=== PATIENT | male | born 1935 | race Hispanic/Latino ===

== ENCOUNTER 2022-01-08 10:48 | Inpatient (IN) | payer MEDICAID, MEDICARE ==
[~2022-01-08] VITALS: Ht 162.6 cm; Wt 61.9 kg
[2022-01-08] MEDS ORDERED: Morphine 2mg Syringe 2 MG/ML SYR IV ONE (11:02)
[2022-01-08] MEDS ORDERED: ONDANSETRON HCL INJ 2MG/ML 2ML 2 MG/ML VIAL IV ONE ×2 (11:02→11:19)
[2022-01-08] MEDS ORDERED: SODIUM CHLORIDE 0.9% 1000ML 1,000 ML IV STA (11:02)
[2022-01-08 11:32] LABS: BASOPHILS % 0.4 % (0.0-1.0); EOSINOPHILS % 0.2 % (0.0-6.0); HEMATOCRIT 39.1 % (38.2-49.6); HEMOGLOBIN 12.4 g/dL (14.0-18.0); LYMPHOCYTES # (AUTO) 1.6 (1.0-3.2); LYMPHOCYTES % 18.6 % (18.0-39.1); MEAN CORPUSCULAR HEMOGLOBIN 25.9 pg (28-32); MEAN CORPUSCULAR HGB CONC 31.7 g/dL (31-35); MEAN CORPUSCULAR VOLUME 81.8 fL (81-99); MONOCYTES # (AUTO) 0.6 (0.2-0.8); MONOCYTES % 6.9 % (4.4-11.3); NEUTROPHILS # (AUTO) 6.3 (2.1-6.9); NEUTROPHILS % 73.7 % (38.7-80.0); PLATELET COUNT 350 x10e3/uL (140-360); RED BLOOD COUNT 4.78 x10e6/uL (4.3-5.7); RED CELL DISTRIBUTION WIDTH 19.3 % (11.7-14.4)
[2022-01-08 11:39] LABS: INR 0.87; PROTHROMBIN TIME 12.6 seconds (11.9-14.5)
[2022-01-08 11:40] LABS: PARTIAL THROMBOPLASTIN TIME 31.4 seconds (23.8-35.5)
[2022-01-08] MEDS ORDERED: SODIUM CHLORIDE 0.9% 1000ML 1,000 ML IV ONE ×2 (12:00→12:15)
[2022-01-08] MEDS ORDERED: PIPERACILLIN/TAZOBACTAM 3.375 GM in SODIUM CHLORIDE 0.9% 50ML 50 ML IV ONE (12:00)
[2022-01-08 12:04] LABS: ALBUMIN 3.8 g/dL (3.5-5.0); ALBUMIN/GLOBULIN RATIO 0.8 (0.8-2.0); ANION GAP 17.1 mmol/L (8-16); CALCIUM 9.8 mg/dL (8.4-10.2); CREATININE, SERUM 1.37 mg/dL (0.72-1.25); MAGNESIUM 2.3 MG/DL (1.3-2.1); POTASSIUM 4.1 mmol/L (3.5-5.1)
[2022-01-08 12:11] LABS: CREATINE KINASE MB 2.3 ng/mL (0-5.0)
[2022-01-08] MEDS ORDERED: SODIUM CHLORIDE 0.9% 1000ML 1,000 ML ONE (12:16)
[2022-01-08] MEDS ORDERED: IOPAMIDOL 370 MG/ML 200 ML INFUS..BTL INJ ONE (12:28)
[2022-01-08] MEDS ORDERED: SODIUM CHLORIDE 0.9% 50ML 50 ML ONE (12:28)
[2022-01-08] MEDS ORDERED: BENZOCAINE/TETRACAINE/BUTAMBEN AERO SPRAY 56 GM CAN TOP ONE (13:15)
[2022-01-08 13:27] LABS: CLARITY,URINE SL CLOUDY (CLEAR); COLOR,URINE YELLOW (YELLOW); KETONES,URINE NEGATIVE (NEGATIVE); LEUKOCYTE ESTERASE ,URINE NEGATIVE (NEGATIVE); NITRITE,URINE NEGATIVE (NEGATIVE); PROTEIN,URINE DIPSTICK TRACE (NEGATIVE); URINE UROBILINOGEN 0.2 mg/dL (0.2 - 1)
[2022-01-08 13:29] LABS: AMPHETAMINES SCREEN,URINE NEGATIVE (NEGATIVE); BENZODIAZEPINES SCREEN,URINE NEGATIVE (NEGATIVE); PHENCYCLIDINE SCREEN,URINE NEGATIVE (NEGATIVE)
[2022-01-08 13:37] LABS: AMORPHOUS SEDIMENT,URINE FEW (FEW); BACTERIA,URINE MODERATE /HPF; MUCUS,URINE FEW (RARE)
[2022-01-08] MEDS: SODIUM CHLORIDE 0.9% 1000ML 1,000 ML IV SCH ×2 (14:41→23:25)
[2022-01-08] MEDS ORDERED: PIPERACILLIN/TAZOBACTAM 3.375 GM in SODIUM CHLORIDE 0.9% 50ML 50 ML IV SCH (15:00)
[2022-01-08] MEDS: PIPERACILLIN/TAZOBACTAM 3.375 GM in SODIUM CHLORIDE 0.9% 50ML 50 ML IV SCH (18:21)
[2022-01-08 20:00] VITALS: BP 167/79
[2022-01-08] MEDS: ONDANSETRON HCL INJ 2MG/ML 2ML 2 MG/ML VIAL IV PRN ×2 (20:06→23:26)
[2022-01-08] MEDS: Morphine 2mg Syringe 2 MG/ML SYR IV PRN ×2 (20:06→23:26)
[2022-01-09] VITALS: BP 159/81
[2022-01-09] MEDS: SODIUM CHLORIDE 0.9% 1000ML 1,000 ML IV SCH ×4 (03:35→23:03)
[2022-01-09] MEDS: Morphine 2mg Syringe 2 MG/ML SYR IV PRN ×3 (03:52→22:27)
[2022-01-09] MEDS: ONDANSETRON HCL INJ 2MG/ML 2ML 2 MG/ML VIAL IV PRN ×3 (03:52→21:14)
[2022-01-09 04:10] VITALS: BP 165/90
[2022-01-09] MEDS: HYDRALAZINE HCL 20 MG/ML VIAL IV PRN (04:15)
[2022-01-09 05:20] LABS: BASOPHILS % 0.5 % (0.0-1.0); EOSINOPHILS # (AUTO) 0.1 (0.0-0.4); EOSINOPHILS % 2.3 % (0.0-6.0); HEMATOCRIT 33.5 % (38.2-49.6); LYMPHOCYTES # (AUTO) 1.5 (1.0-3.2); LYMPHOCYTES % 26.9 % (18.0-39.1); MEAN CORPUSCULAR HEMOGLOBIN 26.3 pg (28-32); MEAN CORPUSCULAR HGB CONC 32.8 g/dL (31-35); MEAN CORPUSCULAR VOLUME 80.1 fL (81-99); MONOCYTES # (AUTO) 0.9 (0.2-0.8); MONOCYTES % 16.5 % (4.4-11.3); NEUTROPHILS % 53.6 % (38.7-80.0); PLATELET COUNT 293 x10e3/uL (140-360); RED BLOOD COUNT 4.18 x10e6/uL (4.3-5.7); RED CELL DISTRIBUTION WIDTH 19.7 % (11.7-14.4)
[2022-01-09] MEDS: HEPARIN SOD (PORCINE) 5,000 UNIT/ML VIAL SC SCH ×3 (05:40→21:07)
[2022-01-09] MEDS: PIPERACILLIN/TAZOBACTAM 3.375 GM in SODIUM CHLORIDE 0.9% 50ML 50 ML IV SCH ×6 (05:40→23:22)
[2022-01-09 05:49] LABS: ALBUMIN 2.9 g/dL (3.5-5.0); ALBUMIN/GLOBULIN RATIO 0.8 (0.8-2.0); CALCIUM 8.2 mg/dL (8.4-10.2); CREATININE, SERUM 1.03 mg/dL (0.72-1.25)
[2022-01-09 06:12] LABS: FERRITIN 73.45 ng/mL (21.81-274.66); THYROID STIMULATING HORMONE 1.718 uIU/mL (0.350-4.940)
[2022-01-09 08:00] VITALS: BP 139/57
[2022-01-09] MEDS: DOCUSATE SODIUM 100 MG CAP PO SCH (09:00)
[2022-01-09] MEDS: SENNOSIDES 8.6 MG TAB PO SCH (09:00)
[2022-01-09 15:56] VITALS: BP 158/82
[2022-01-09] MEDS ORDERED: BISACODYL 10 MG SUPP PR ONE (18:50)
[2022-01-09 20:00] VITALS: BP 160/81
[2022-01-09 21:00] VITALS: BP 160/81
[2022-01-10] VITALS (9 sets, daily range): BP systolic 148–173; BP diastolic 76–91
[2022-01-10] MEDS: HYDRALAZINE HCL 20 MG/ML VIAL IV PRN ×2 (00:41→21:59)
[2022-01-10] MEDS: ONDANSETRON HCL INJ 2MG/ML 2ML 2 MG/ML VIAL IV PRN ×3 (01:18→22:52)
[2022-01-10] MEDS: Morphine 2mg Syringe 2 MG/ML SYR IV PRN ×5 (01:56→22:52)
[2022-01-10 05:00] LABS: BASOPHILS % 0.5 % (0.0-1.0); EOSINOPHILS % 0.2 % (0.0-6.0); HEMATOCRIT 30.7 % (38.2-49.6); LYMPHOCYTES % 17.7 % (18.0-39.1); MEAN CORPUSCULAR HEMOGLOBIN 26.5 pg (28-32); MEAN CORPUSCULAR HGB CONC 32.6 g/dL (31-35); MEAN CORPUSCULAR VOLUME 81.2 fL (81-99); MONOCYTES # (AUTO) 0.7 (0.2-0.8); MONOCYTES % 12.1 % (4.4-11.3); NEUTROPHILS # (AUTO) 3.9 (2.1-6.9); NEUTROPHILS % 69.1 % (38.7-80.0); PLATELET COUNT 241 x10e3/uL (140-360); RED BLOOD COUNT 3.78 x10e6/uL (4.3-5.7); RED CELL DISTRIBUTION WIDTH 19.9 % (11.7-14.4)
[2022-01-10] MEDS: PIPERACILLIN/TAZOBACTAM 3.375 GM in SODIUM CHLORIDE 0.9% 50ML 50 ML IV SCH ×4 (05:07→23:26)
[2022-01-10] MEDS: SODIUM CHLORIDE 0.9% 1000ML 1,000 ML IV SCH ×3 (05:08→18:30)
[2022-01-10] MEDS: HEPARIN SOD (PORCINE) 5,000 UNIT/ML VIAL SC SCH ×3 (05:08→21:59)
[2022-01-10 05:21] LABS: ANION GAP 11.7 mmol/L (8-16); CALCIUM 8.2 mg/dL (8.4-10.2); CREATININE, SERUM 0.97 mg/dL (0.72-1.25); POTASSIUM 3.7 mmol/L (3.5-5.1)
[2022-01-10] MEDS ORDERED: BISACODYL 10 MG SUPP PR SCH (08:00)
[2022-01-10] MEDS: DOCUSATE SODIUM 100 MG CAP PO SCH (08:26)
[2022-01-10] MEDS: ASPIRIN 81 MG ENTERIC COATED PO SCH (08:26)
[2022-01-10] MEDS: THIAMINE HCL 100 MG TAB PO SCH (08:27)
[2022-01-10] MEDS: SENNOSIDES 8.6 MG TAB PO SCH (08:27)
[2022-01-10] MEDS: AMLODIPINE BESYLATE 10 MG TAB PO SCH (08:27)
[2022-01-10] MEDS ORDERED: FERROUS SULFATE 325 MG TAB PO SCH (09:00)
[2022-01-10] MEDS: BISACODYL 10 MG SUPP PR SCH (21:58)
[2022-01-11] VITALS (9 sets, daily range): BP systolic 144–166; BP diastolic 71–81
[2022-01-11] MEDS: Morphine 2mg Syringe 2 MG/ML SYR IV PRN ×4 (03:38→21:06)
[2022-01-11] MEDS: ONDANSETRON HCL INJ 2MG/ML 2ML 2 MG/ML VIAL IV PRN ×4 (03:38→21:06)
[2022-01-11] MEDS: SODIUM CHLORIDE 0.9% 1000ML 1,000 ML IV SCH ×4 (03:38→21:09)
[2022-01-11] MEDS: PIPERACILLIN/TAZOBACTAM 3.375 GM in SODIUM CHLORIDE 0.9% 50ML 50 ML IV SCH ×3 (05:25→17:15)
[2022-01-11 05:28] LABS: BASOPHILS % 0.7 % (0.0-1.0); EOSINOPHILS # (AUTO) 0.1 (0.0-0.4); HEMATOCRIT 30.6 % (38.2-49.6); HEMOGLOBIN 9.8 g/dL (14.0-18.0); LYMPHOCYTES # (AUTO) 1.5 (1.0-3.2); LYMPHOCYTES % 25.3 % (18.0-39.1); MEAN CORPUSCULAR HEMOGLOBIN 26.4 pg (28-32); MEAN CORPUSCULAR VOLUME 82.5 fL (81-99); MONOCYTES # (AUTO) 1.2 (0.2-0.8); MONOCYTES % 19.5 % (4.4-11.3); NEUTROPHILS # (AUTO) 3.2 (2.1-6.9); NEUTROPHILS % 52.3 % (38.7-80.0); PLATELET COUNT 241 x10e3/uL (140-360); RED BLOOD COUNT 3.71 x10e6/uL (4.3-5.7); RED CELL DISTRIBUTION WIDTH 20.2 % (11.7-14.4)
[2022-01-11] MEDS: HEPARIN SOD (PORCINE) 5,000 UNIT/ML VIAL SC SCH ×3 (05:33→21:09)
[2022-01-11 05:46] LABS: ANION GAP 13.4 mmol/L (8-16); CREATININE, SERUM 0.95 mg/dL (0.72-1.25); POTASSIUM 3.4 mmol/L (3.5-5.1)
[2022-01-11] MEDS: BISACODYL 10 MG SUPP PR SCH ×2 (08:09→21:09)
[2022-01-11] MEDS: ASPIRIN 81 MG ENTERIC COATED PO SCH (08:34)
[2022-01-11] MEDS: DOCUSATE SODIUM 100 MG CAP PO SCH (08:34)
[2022-01-11] MEDS: AMLODIPINE BESYLATE 10 MG TAB PO SCH (08:34)
[2022-01-11] MEDS: SENNOSIDES 8.6 MG TAB PO SCH (08:34)
[2022-01-11] MEDS: THIAMINE HCL 100 MG TAB PO SCH (08:35)
[2022-01-11] MEDS: HYDRALAZINE HCL 20 MG/ML VIAL IV PRN ×2 (09:02→21:23)
[2022-01-11] MEDS ORDERED: POTASSIUM CHLORIDE 20MEQ/100ML 100 ML IV ONE (18:15)
[2022-01-11] MEDS ORDERED: POTASSIUM CHLORIDE 20 MEQ TAB CR PO ONE (18:30)
[2022-01-12] VITALS (14 sets, daily range): BP systolic 114–188; BP diastolic 58–95
[2022-01-12] MEDS: Morphine 2mg Syringe 2 MG/ML SYR IV PRN ×3 (01:14→23:20)
[2022-01-12] MEDS: ONDANSETRON HCL INJ 2MG/ML 2ML 2 MG/ML VIAL IV PRN ×2 (01:14→05:36)
[2022-01-12] MEDS: PIPERACILLIN/TAZOBACTAM 3.375 GM in SODIUM CHLORIDE 0.9% 50ML 50 ML IV SCH ×5 (01:19→23:34)
[2022-01-12] MEDS: SODIUM CHLORIDE 0.9% 1000ML 1,000 ML IV SCH ×3 (04:35→19:42)
[2022-01-12] MEDS: HEPARIN SOD (PORCINE) 5,000 UNIT/ML VIAL SC SCH (05:36)
[2022-01-12] MEDS: HYDRALAZINE HCL 20 MG/ML VIAL IV PRN (05:44)
[2022-01-12 06:52] LABS: ANION GAP 17.3 mmol/L (8-16); CALCIUM 8.2 mg/dL (8.4-10.2); CREATININE, SERUM 0.89 mg/dL (0.72-1.25); MAGNESIUM 1.8 MG/DL (1.3-2.1); POTASSIUM 3.3 mmol/L (3.5-5.1)
[2022-01-12] MEDS: BISACODYL 10 MG SUPP PR SCH (08:23)
[2022-01-12] MEDS: SENNOSIDES 8.6 MG TAB PO SCH (08:24)
[2022-01-12] MEDS: DOCUSATE SODIUM 100 MG CAP PO SCH (08:24)
[2022-01-12] MEDS: ASPIRIN 81 MG ENTERIC COATED PO SCH (08:24)
[2022-01-12] MEDS: THIAMINE HCL 100 MG TAB PO SCH (08:24)
[2022-01-12] MEDS: AMLODIPINE BESYLATE 10 MG TAB PO SCH (08:24)
[2022-01-12] MEDS ORDERED: POTASSIUM CHLORIDE 20MEQ/100ML 200 ML IV ONE (09:00)
[2022-01-12] MEDS: LABETALOL HCL 5 MG/ML 20ML VIAL IV PRN (10:46)
[2022-01-12] MEDS ORDERED: ROCURONIUM BROMIDE 10 MG/ML 5ML VIAL IV ONE (12:15)
[2022-01-12] MEDS ORDERED: PROPOFOL IV EMULSION 10 MG/ML 20 ML VIAL ONE (12:15)
[2022-01-12] MEDS ORDERED: POVIDONE IODINE 0.05% 0.05 % ML PO ONE (12:15)
[2022-01-12] MEDS ORDERED: KETOROLAC TROMETHAMINE 30 MG/ML VIAL ONE (12:15)
[2022-01-12] MEDS ORDERED: LIDOCAINE HCL 2% LOCAL INJ 5 ML SDV VIAL INJ ONE (12:15)
[2022-01-12] MEDS ORDERED: SUCCINYLCHOLINE CHLORIDE 20 MG/ML 10ML VIAL ONE (12:15)
[2022-01-12] MEDS ORDERED: SEVOFLURANE INHAL SOLN 250 ML PEN BTL ONE (12:15)
[2022-01-12] MEDS: IRON SUCROSE 100 MG in SODIUM CHLORIDE 0.9% 100 ML 100 ML IV SCH ×2 (12:56→20:37)
[2022-01-12] MEDS ORDERED: MIDAZOLAM HCL 2 MG/2 ML VIAL ONE (13:15)
[2022-01-12] MEDS ORDERED: FENTANYL CITRATE/PF 100MCG/2 ML INJ ONE ×2 (13:15→15:26)
[2022-01-12] MEDS ORDERED: SUGAMMADEX SODIUM 200 MG/2 ML VIAL IV ONE (13:54)
[2022-01-12] MEDS ORDERED: ACETAMINOPHEN 1000 MG/100 ML 100 ML IV ONE (13:54)
[2022-01-12] MEDS ORDERED: ACETAMINOPHEN 1000 MG/100 ML IV PRN (15:00)
[2022-01-12] MEDS: SODIUM CHLORIDE 0.9% 250ML IRRIG IR SCH ×3 (17:32→23:20)
[2022-01-12 20:17] LABS: ANION GAP 14.4 mmol/L (8-16); CREATININE, SERUM 0.82 mg/dL (0.72-1.25); POTASSIUM 3.4 mmol/L (3.5-5.1)
[2022-01-12] MEDS ORDERED: POTASSIUM CHLORIDE 20MEQ/100ML 100 ML IV ONE (20:50)
[2022-01-13] VITALS (22 sets, daily range): BP systolic 122–169; BP diastolic 67–108
[2022-01-13] MEDS: SODIUM CHLORIDE 0.9% 1000ML 1,000 ML IV SCH ×4 (00:44→22:42)
[2022-01-13] MEDS: SODIUM CHLORIDE 0.9% 250ML IRRIG IR SCH ×6 (03:01→23:16)
[2022-01-13] MEDS: Morphine 2mg Syringe 2 MG/ML SYR IV PRN ×3 (03:24→19:35)
[2022-01-13] MEDS: PIPERACILLIN/TAZOBACTAM 3.375 GM in SODIUM CHLORIDE 0.9% 50ML 50 ML IV SCH ×4 (05:00→23:58)
[2022-01-13 05:03] LABS: BASOPHILS % 0.2 % (0.0-1.0); HEMOGLOBIN 10.3 g/dL (14.0-18.0); LYMPHOCYTES # (AUTO) 0.8 (1.0-3.2); LYMPHOCYTES % 6.3 % (18.0-39.1); MEAN CORPUSCULAR HEMOGLOBIN 26.8 pg (28-32); MEAN CORPUSCULAR HGB CONC 33.2 g/dL (31-35); MEAN CORPUSCULAR VOLUME 80.7 fL (81-99); MONOCYTES # (AUTO) 0.8 (0.2-0.8); MONOCYTES % 6.9 % (4.4-11.3); NEUTROPHILS # (AUTO) 10.5 (2.1-6.9); NEUTROPHILS % 86.2 % (38.7-80.0); PLATELET COUNT 205 x10e3/uL (140-360); RED BLOOD COUNT 3.84 x10e6/uL (4.3-5.7); RED CELL DISTRIBUTION WIDTH 20.5 % (11.7-14.4)
[2022-01-13 05:37] LABS: ANION GAP 11.5 mmol/L (8-16); CALCIUM 7.9 mg/dL (8.4-10.2); CREATININE, SERUM 0.83 mg/dL (0.72-1.25); MAGNESIUM 1.7 MG/DL (1.3-2.1); POTASSIUM 3.5 mmol/L (3.5-5.1)
[2022-01-13] MEDS: AMLODIPINE BESYLATE 10 MG TAB PO SCH (07:40)
[2022-01-13] MEDS: ONDANSETRON HCL INJ 2MG/ML 2ML 2 MG/ML VIAL IV PRN ×2 (08:13→19:29)
[2022-01-13] MEDS ORDERED: MAGNESIUM SULFATE 2GM/50ML 50 ML IV ONE (09:00)
[2022-01-13] MEDS: IRON SUCROSE 100 MG in SODIUM CHLORIDE 0.9% 100 ML 100 ML IV SCH (10:57)
[2022-01-13] MEDS: LABETALOL HCL 5 MG/ML 20ML VIAL IV PRN (14:26)
[2022-01-13] MEDS: HYDROMORPHONE 1MG/1ML INJ IV PRN (21:31)
[2022-01-14] VITALS (10 sets, daily range): BP systolic 130–171; BP diastolic 75–91
[2022-01-14] MEDS: ONDANSETRON HCL INJ 2MG/ML 2ML 2 MG/ML VIAL IV PRN ×3 (01:41→17:28)
[2022-01-14] MEDS: HYDROMORPHONE 1MG/1ML INJ IV PRN ×4 (01:45→21:19)
[2022-01-14] MEDS: SODIUM CHLORIDE 0.9% 250ML IRRIG IR SCH ×7 (03:28→21:31)
[2022-01-14] MEDS: SODIUM CHLORIDE 0.9% 1000ML 1,000 ML IV SCH ×4 (04:46→21:22)
[2022-01-14] MEDS: PIPERACILLIN/TAZOBACTAM 3.375 GM in SODIUM CHLORIDE 0.9% 50ML 50 ML IV SCH ×3 (05:50→17:28)
[2022-01-14 06:02] LABS: BASOPHILS % 0.2 % (0.0-1.0); EOSINOPHILS # (AUTO) 0.5 (0.0-0.4); HEMATOCRIT 27.6 % (38.2-49.6); HEMOGLOBIN 8.9 g/dL (14.0-18.0); LYMPHOCYTES # (AUTO) 1.6 (1.0-3.2); LYMPHOCYTES % 12.8 % (18.0-39.1); MEAN CORPUSCULAR HEMOGLOBIN 26.7 pg (28-32); MEAN CORPUSCULAR HGB CONC 32.2 g/dL (31-35); MEAN CORPUSCULAR VOLUME 82.9 fL (81-99); MONOCYTES # (AUTO) 0.9 (0.2-0.8); MONOCYTES % 7.5 % (4.4-11.3); NEUTROPHILS # (AUTO) 9.2 (2.1-6.9); NEUTROPHILS % 74.9 % (38.7-80.0); PLATELET COUNT 181 x10e3/uL (140-360); RED BLOOD COUNT 3.33 x10e6/uL (4.3-5.7); RED CELL DISTRIBUTION WIDTH 20.9 % (11.7-14.4)
[2022-01-14 06:26] LABS: ALBUMIN/GLOBULIN RATIO 0.7 (0.8-2.0); ANION GAP 9.9 mmol/L (8-16); CALCIUM 7.7 mg/dL (8.4-10.2); CREATININE, SERUM 0.73 mg/dL (0.72-1.25)
[2022-01-14 06:29] LABS: POTASSIUM 2.9 mmol/L (3.5-5.1)
[2022-01-14] MEDS: POTASSIUM CHLORIDE 10MEQ/100ML 100 ML IV SCH ×2 (08:08→10:29)
[2022-01-14] MEDS ORDERED: POTASSIUM CHLORIDE 20MEQ/100ML 100 ML IV ONE (09:00)
[2022-01-14] MEDS: AMLODIPINE BESYLATE 10 MG TAB PO SCH (09:00)
[2022-01-14] MEDS: IRON SUCROSE 100 MG in SODIUM CHLORIDE 0.9% 100 ML 100 ML IV SCH (10:00)
[2022-01-14] MEDS ORDERED: POTASSIUM CHLORIDE 20MEQ/100ML 100 ML ONE ×2 (10:36→14:14)
[2022-01-14] MEDS ORDERED: BISACODYL 10 MG SUPP PR ONE (12:30)
[2022-01-14] MEDS: LABETALOL HCL 5 MG/ML 20ML VIAL IV PRN (21:20)
[2022-01-15] VITALS (8 sets, daily range): BP systolic 122–180; BP diastolic 75–91
[2022-01-15] MEDS: PIPERACILLIN/TAZOBACTAM 3.375 GM in SODIUM CHLORIDE 0.9% 50ML 50 ML IV SCH ×4 (00:21→18:14)
[2022-01-15] MEDS: HYDROMORPHONE 1MG/1ML INJ IV PRN ×5 (00:21→17:55)
[2022-01-15] MEDS: LABETALOL HCL 5 MG/ML 20ML VIAL IV PRN ×2 (04:15→09:34)
[2022-01-15] MEDS: SODIUM CHLORIDE 0.9% 1000ML 1,000 ML IV SCH ×2 (04:16→16:21)
[2022-01-15 05:53] LABS: BASOPHILS # (AUTO) 0.1 (0.0-0.1); BASOPHILS % 0.4 % (0.0-1.0); EOSINOPHILS # (AUTO) 0.9 (0.0-0.4); EOSINOPHILS % 7.3 % (0.0-6.0); HEMOGLOBIN 8.6 g/dL (14.0-18.0); LYMPHOCYTES # (AUTO) 1.8 (1.0-3.2); LYMPHOCYTES % 14.8 % (18.0-39.1); MEAN CORPUSCULAR HEMOGLOBIN 26.4 pg (28-32); MEAN CORPUSCULAR HGB CONC 31.9 g/dL (31-35); MEAN CORPUSCULAR VOLUME 82.8 fL (81-99); MONOCYTES # (AUTO) 0.8 (0.2-0.8); NEUTROPHILS # (AUTO) 8.5 (2.1-6.9); NEUTROPHILS % 69.9 % (38.7-80.0); PLATELET COUNT 186 x10e3/uL (140-360); RED BLOOD COUNT 3.26 x10e6/uL (4.3-5.7); RED CELL DISTRIBUTION WIDTH 20.9 % (11.7-14.4)
[2022-01-15 06:16] LABS: ALBUMIN/GLOBULIN RATIO 0.6 (0.8-2.0); ANION GAP 12.1 mmol/L (8-16); CALCIUM 7.7 mg/dL (8.4-10.2); CREATININE, SERUM 0.71 mg/dL (0.72-1.25); POTASSIUM 3.1 mmol/L (3.5-5.1)
[2022-01-15] MEDS: SODIUM CHLORIDE 0.9% 250ML IRRIG IR SCH ×2 (07:00→11:17)
[2022-01-15] MEDS: AMLODIPINE BESYLATE 10 MG TAB PO SCH (09:34)
[2022-01-15] MEDS ORDERED: POTASSIUM CHLORIDE 20MEQ/100ML 300 ML IV ONE (10:00)
[2022-01-15] MEDS ORDERED: HYDRALAZINE HCL 20 MG/ML VIAL IV PRN (11:00)
[2022-01-15] MEDS ORDERED: SODIUM CHLORIDE 0.9% 50ML 50 ML ONE (12:39)
[2022-01-15] MEDS: ONDANSETRON HCL INJ 2MG/ML 2ML 2 MG/ML VIAL IV PRN (14:29)
[2022-01-15] MEDS: BISACODYL 10 MG SUPP PR SCH (21:00)
[2022-01-16] VITALS (8 sets, daily range): BP systolic 126–167; BP diastolic 68–79
[2022-01-16] MEDS: PIPERACILLIN/TAZOBACTAM 3.375 GM in SODIUM CHLORIDE 0.9% 50ML 50 ML IV SCH ×4 (00:10→16:52)
[2022-01-16] MEDS ORDERED: PIPERACILLIN/TAZOBACTAM 3.375 GM VIAL ONE (00:42)
[2022-01-16] MEDS ORDERED: SODIUM CHLORIDE 0.9% 50ML 50 ML ONE (00:43)
[2022-01-16] MEDS: HYDROMORPHONE 1MG/1ML INJ IV PRN ×2 (02:45→12:02)
[2022-01-16] MEDS: SODIUM CHLORIDE 0.9% 1000ML 1,000 ML IV SCH ×2 (03:13→12:02)
[2022-01-16 05:07] LABS: BASOPHILS % 0.2 % (0.0-1.0); EOSINOPHILS # (AUTO) 0.6 (0.0-0.4); EOSINOPHILS % 5.5 % (0.0-6.0); HEMATOCRIT 27.6 % (38.2-49.6); LYMPHOCYTES # (AUTO) 1.6 (1.0-3.2); LYMPHOCYTES % 15.1 % (18.0-39.1); MEAN CORPUSCULAR HEMOGLOBIN 26.4 pg (28-32); MEAN CORPUSCULAR HGB CONC 32.6 g/dL (31-35); MEAN CORPUSCULAR VOLUME 80.9 fL (81-99); MONOCYTES % 8.9 % (4.4-11.3); NEUTROPHILS # (AUTO) 7.4 (2.1-6.9); NEUTROPHILS % 69.5 % (38.7-80.0); PLATELET COUNT 202 x10e3/uL (140-360); RED BLOOD COUNT 3.41 x10e6/uL (4.3-5.7); RED CELL DISTRIBUTION WIDTH 20.4 % (11.7-14.4)
[2022-01-16 05:28] LABS: ALANINE AMINOTRANSFERASE 11 IU/L (0-55); ALBUMIN 2.1 g/dL (3.5-5.0); ALBUMIN/GLOBULIN RATIO 0.6 (0.8-2.0); ALKALINE PHOSPHATASE 48 IU/L (40-150); BLOOD UREA NITROGEN < 5 mg/dL (7-26); CALCIUM 7.6 mg/dL (8.4-10.2); CARBON DIOXIDE 23 mmol/L (22-29); CHLORIDE 105 mmol/L (98-107); CREATININE, SERUM 0.73 mg/dL (0.72-1.25); EST GLOMERULAR FILTRATION RATE 102 ML/MIN (60-); GLUCOSE 139 mg/dL (74-118); SODIUM 137 mmol/L (136-145)
[2022-01-16 05:30] LABS: BUN/CREATININE RATIO 7 (6-25)
[2022-01-16] MEDS: BISACODYL 10 MG SUPP PR SCH (08:53)
[2022-01-16] MEDS: AMLODIPINE BESYLATE 10 MG TAB PO SCH (08:53)
[2022-01-16] MEDS ORDERED: POTASSIUM CHLORIDE 10MEQ/100ML 400 ML IV ONE ×2 (09:00→11:00)
[2022-01-16] MEDS: ONDANSETRON HCL INJ 2MG/ML 2ML 2 MG/ML VIAL IV PRN (12:02)
[2022-01-16 14:42] LABS: ANION GAP 10.2 mmol/L (8-16); BLOOD UREA NITROGEN < 5 mg/dL (7-26); BUN/CREATININE RATIO 8 (6-25); CALCIUM 7.1 mg/dL (8.4-10.2); CARBON DIOXIDE 26 mmol/L (22-29); CHLORIDE 103 mmol/L (98-107); CREATININE, SERUM 0.66 mg/dL (0.72-1.25); EST GLOMERULAR FILTRATION RATE 115 ML/MIN (60-); GLUCOSE 113 mg/dL (74-118); POTASSIUM 3.2 mmol/L (3.5-5.1); SODIUM 136 mmol/L (136-145)
[2022-01-17] VITALS (7 sets, daily range): BP systolic 130–146; BP diastolic 67–86
[2022-01-17] MEDS: SODIUM CHLORIDE 0.9% 1000ML 1,000 ML IV SCH (02:26)
[2022-01-17] MEDS: HYDROCODONE/APAP 5MG-325MG TAB PO PRN ×2 (03:02→15:53)
[2022-01-17 05:19] LABS: BASOPHILS % 0.3 % (0.0-1.0); EOSINOPHILS # (AUTO) 0.6 (0.0-0.4); EOSINOPHILS % 5.7 % (0.0-6.0); HEMATOCRIT 25.4 % (38.2-49.6); HEMOGLOBIN 8.4 g/dL (14.0-18.0); LYMPHOCYTES # (AUTO) 1.7 (1.0-3.2); MEAN CORPUSCULAR HEMOGLOBIN 26.5 pg (28-32); MEAN CORPUSCULAR HGB CONC 33.1 g/dL (31-35); MEAN CORPUSCULAR VOLUME 80.1 fL (81-99); NEUTROPHILS # (AUTO) 6.8 (2.1-6.9); NEUTROPHILS % 66.3 % (38.7-80.0); PLATELET COUNT 213 x10e3/uL (140-360); RED BLOOD COUNT 3.17 x10e6/uL (4.3-5.7); RED CELL DISTRIBUTION WIDTH 20.1 % (11.7-14.4)
[2022-01-17 05:48] LABS: BLOOD UREA NITROGEN < 5 mg/dL (7-26); CALCIUM 7.4 mg/dL (8.4-10.2); CARBON DIOXIDE 27 mmol/L (22-29); CHLORIDE 103 mmol/L (98-107); CREATININE, SERUM 0.66 mg/dL (0.72-1.25); EST GLOMERULAR FILTRATION RATE 115 ML/MIN (60-); GLUCOSE 108 mg/dL (74-118); MAGNESIUM 1.7 MG/DL (1.3-2.1); SODIUM 135 mmol/L (136-145)
[2022-01-17 05:53] LABS: BUN/CREATININE RATIO 8 (6-25)
[2022-01-17] MEDS: PANTOPRAZOLE SOD 40 MG TABEC PO SCH (07:22)
[2022-01-17] MEDS: AMLODIPINE BESYLATE 10 MG TAB PO SCH (08:28)
[2022-01-17] MEDS ORDERED: MAGNESIUM SULFATE 2GM/50ML 50 ML IV ONE (11:30)
[2022-01-17] MEDS ORDERED: POTASSIUM CHLORIDE 20 MEQ TAB CR PO ONE ×2 (11:30→12:00)
[2022-01-17 15:19] LABS: ANION GAP 10.9 mmol/L (8-16); BLOOD UREA NITROGEN < 5 mg/dL (7-26); CALCIUM 7.8 mg/dL (8.4-10.2); CARBON DIOXIDE 25 mmol/L (22-29); CHLORIDE 101 mmol/L (98-107); CREATININE, SERUM 0.65 mg/dL (0.72-1.25); EST GLOMERULAR FILTRATION RATE 117 ML/MIN (60-); GLUCOSE 123 mg/dL (74-118); SODIUM 134 mmol/L (136-145)
[2022-01-17 15:21] LABS: BUN/CREATININE RATIO 8 (6-25)
[2022-01-17 15:22] LABS: POTASSIUM 2.9 mmol/L (3.5-5.1)
[2022-01-17] MEDS ORDERED: POTASSIUM CHLORIDE 10MEQ EA PO ONE (16:30)
[2022-01-18] VITALS (9 sets, daily range): BP systolic 123–140; BP diastolic 57–77
[2022-01-18 04:56] LABS: BASOPHILS % 0.2 % (0.0-1.0); EOSINOPHILS # (AUTO) 0.4 (0.0-0.4); EOSINOPHILS % 4.7 % (0.0-6.0); HEMATOCRIT 25.6 % (38.2-49.6); HEMOGLOBIN 8.6 g/dL (14.0-18.0); LYMPHOCYTES # (AUTO) 1.4 (1.0-3.2); LYMPHOCYTES % 14.9 % (18.0-39.1); MEAN CORPUSCULAR HGB CONC 33.6 g/dL (31-35); MEAN CORPUSCULAR VOLUME 80.5 fL (81-99); MONOCYTES # (AUTO) 0.9 (0.2-0.8); NEUTROPHILS # (AUTO) 6.5 (2.1-6.9); NEUTROPHILS % 69.3 % (38.7-80.0); PLATELET COUNT 242 x10e3/uL (140-360); RED BLOOD COUNT 3.18 x10e6/uL (4.3-5.7); RED CELL DISTRIBUTION WIDTH 20.6 % (11.7-14.4)
[2022-01-18 05:13] LABS: ANION GAP 11.2 mmol/L (8-16); BLOOD UREA NITROGEN < 5 mg/dL (7-26); CARBON DIOXIDE 23 mmol/L (22-29); CHLORIDE 105 mmol/L (98-107); CREATININE, SERUM 0.66 mg/dL (0.72-1.25); EST GLOMERULAR FILTRATION RATE 115 ML/MIN (60-); GLUCOSE 94 mg/dL (74-118); MAGNESIUM 2.3 MG/DL (1.3-2.1); POTASSIUM 4.2 mmol/L (3.5-5.1); SODIUM 135 mmol/L (136-145)
[2022-01-18 05:21] LABS: BUN/CREATININE RATIO 8 (6-25)
[2022-01-18] MEDS: PANTOPRAZOLE SOD 40 MG TABEC PO SCH (07:30)
[2022-01-18] MEDS: AMLODIPINE BESYLATE 10 MG TAB PO SCH (08:46)
[2022-01-18] MEDS: SODIUM CHLORIDE 0.9% 1000ML 1,000 ML IV SCH (11:01)
[2022-01-18] MEDS: HYDROCODONE/APAP 5MG-325MG TAB PO PRN (13:46)
[2022-01-19] MEDS: HYDROCODONE/APAP 5MG-325MG TAB PO PRN ×2 (01:38→13:40)
[2022-01-19 04:00] VITALS: BP 135/71
[2022-01-19 05:27] LABS: ANION GAP 11.1 mmol/L (8-16); CALCIUM 8.3 mg/dL (8.4-10.2); CREATININE, SERUM 0.72 mg/dL (0.72-1.25); POTASSIUM 4.1 mmol/L (3.5-5.1)
[2022-01-19] MEDS: SODIUM CHLORIDE 0.9% 1000ML 1,000 ML IV SCH (07:01)
[2022-01-19] MEDS: PANTOPRAZOLE SOD 40 MG TABEC PO SCH (07:30)
[2022-01-19 08:08] VITALS: BP 133/85
[2022-01-19] MEDS: AMLODIPINE BESYLATE 10 MG TAB PO SCH (09:00)
[2022-01-19 10:28] VITALS: BP 133/85
[2022-01-19 12:35] VITALS: BP 126/67
[2022-01-19] MEDS ORDERED: ONDANSETRON HCL 4 MG ORAL DISINTEGRATING TAB PO PRN (15:45)
[2022-01-19 16:14] VITALS: BP 123/73
== END 2022-01-19 16:50 | disposition home or self-care (01) | DRG 329 ==
LOC: ER 10:54 → ERHOLD 14:04 → MED/SURG 18:09 → ICU 01-12 15:39 → MED/SURG 01-14 16:18
PROVIDERS: ADMIT Internal Medicine; ATTEND Internal Medicine
PROC: 0DN80ZZ Release Small Intestine, Open Approach (ICD-10-PCS; 2022-01-12)
PROC: 0DT80ZZ Resection of Small Intestine, Open Approach (ICD-10-PCS; principal; 2022-01-12 13:04)
DX: K56.50 Intestinal adhesions [bands], unspecified as to partial versus complete obstruction (principal); E43 Unspecified severe protein-calorie malnutrition; E87.2 Acidosis; D62 Acute posthemorrhagic anemia; Z68.23 Body mass index [BMI] 23.0-23.9, adult; I49.1 Atrial premature depolarization; I11.9 Hypertensive heart disease without heart failure; D63.8 Anemia in other chronic diseases classified elsewhere; E87.6 Hypokalemia; E86.0 Dehydration; R73.9 Hyperglycemia, unspecified; D50.9 Iron deficiency anemia, unspecified; F10.11 Alcohol abuse, in remission; N40.0 Benign prostatic hyperplasia without lower urinary tract symptoms; K57.10 Diverticulosis of small intestine without perforation or abscess without bleeding; Z20.822 Contact with and (suspected) exposure to COVID-19
CPT/HCPCS: 36415; 71045; 74018; 74177; 80048; 80053; 80307; 81001; 82150; 82550; 82553; 82607; 82728; 82746; 83036; 83540; 83605; 83690; 83735; 84443; 84466; 84484; 85025; 85610; 85730; 87040; 87086; 88307; 93005; 94799; 96361; 97139; 99251; 99285; J0330; J0360; J1170; J1644; J1756; J1885; J2001; J2250; J2270; J2405; J2543; J3010; J3475; J3480; J7030; Q9967; U0002

== ENCOUNTER 2022-01-19 20:17 | Inpatient (IN) | payer MEDICAID, MEDICARE ==
[~2022-01-19] VITALS: Ht 170.2 cm; Wt 56.7 kg
[2022-01-19] MEDS ORDERED: ONDANSETRON HCL INJ 2MG/ML 2ML 2 MG/ML VIAL IV STA (20:27)
[2022-01-19 20:43] LABS: BASOPHILS % 0.3 % (0.0-1.0); EOSINOPHILS # (AUTO) 0.1 (0.0-0.4); HEMATOCRIT 29.7 % (38.2-49.6); HEMOGLOBIN 9.6 g/dL (14.0-18.0); LYMPHOCYTES # (AUTO) 1.2 (1.0-3.2); LYMPHOCYTES % 11.3 % (18.0-39.1); MEAN CORPUSCULAR HEMOGLOBIN 26.6 pg (28-32); MEAN CORPUSCULAR HGB CONC 32.3 g/dL (31-35); MEAN CORPUSCULAR VOLUME 82.3 fL (81-99); MONOCYTES # (AUTO) 0.9 (0.2-0.8); MONOCYTES % 8.7 % (4.4-11.3); NEUTROPHILS # (AUTO) 8.2 (2.1-6.9); NEUTROPHILS % 77.7 % (38.7-80.0); PLATELET COUNT 343 x10e3/uL (140-360); RED BLOOD COUNT 3.61 x10e6/uL (4.3-5.7); RED CELL DISTRIBUTION WIDTH 20.9 % (11.7-14.4)
[2022-01-19 21:00] LABS: ALBUMIN 2.5 g/dL (3.5-5.0); ALBUMIN/GLOBULIN RATIO 0.6 (0.8-2.0); ANION GAP 14.2 mmol/L (8-16); CALCIUM 8.9 mg/dL (8.4-10.2); CREATININE, SERUM 0.94 mg/dL (0.72-1.25); POTASSIUM 4.2 mmol/L (3.5-5.1)
[2022-01-19 21:01] LABS: AMYLASE 48 U/L (25-125); LIPASE 31 U/L (8-78)
[2022-01-19 21:07] LABS: CREATINE KINASE MB 0.9 ng/mL (0-5.0)
[2022-01-19] MEDS ORDERED: SODIUM CHLORIDE 0.9% 50ML 50 ML ONE (21:35)
[2022-01-19] MEDS ORDERED: IOPAMIDOL 370 MG/ML 200 ML INFUS..BTL INJ ONE (21:35)
[2022-01-19 22:40] LABS: CLARITY,URINE CLEAR (CLEAR); COLOR,URINE YELLOW (YELLOW)
[2022-01-19 22:41] LABS: KETONES,URINE NEGATIVE (NEGATIVE); LEUKOCYTE ESTERASE ,URINE NEGATIVE (NEGATIVE); NITRITE,URINE NEGATIVE (NEGATIVE); PROTEIN,URINE DIPSTICK NEGATIVE (NEGATIVE); URINE UROBILINOGEN 0.2 mg/dL (0.2 - 1)
[2022-01-19 22:44] LABS: BACTERIA,URINE FEW /HPF; EPITHELIAL CELLS,URINE RARE /LPF; WBC,URINE (MAN) 0-5 /HPF (0-5)
[2022-01-19] MEDS ORDERED: ONDANSETRON HCL INJ 2MG/ML 2ML 2 MG/ML VIAL IV PRN (23:45)
[2022-01-20] VITALS (9 sets, daily range): BP systolic 135–154; BP diastolic 66–78
[2022-01-20] MEDS: SODIUM CHLORIDE 0.9% 1000ML 1,000 ML IV SCH ×3 (01:24→16:59)
[2022-01-20] MEDS: MAGNESIUM HYDROXIDE 30 ML UDC PO SCH (22:09)
[2022-01-21] VITALS (8 sets, daily range): BP systolic 134–169; BP diastolic 64–85
[2022-01-21] MEDS: SODIUM CHLORIDE 0.9% 1000ML 1,000 ML IV SCH ×2 (05:35→20:11)
[2022-01-21] MEDS ORDERED: KETOROLAC TROMETHAMINE 30 MG/ML VIAL IV PRN (07:30)
[2022-01-21] MEDS: MAGNESIUM HYDROXIDE 30 ML UDC PO SCH (21:00)
[2022-01-22] VITALS (8 sets, daily range): BP systolic 100–151; BP diastolic 35–78
[2022-01-22] MEDS: SODIUM CHLORIDE 0.9% 1000ML 1,000 ML IV SCH ×2 (09:05→16:15)
[2022-01-22] MEDS: MAGNESIUM HYDROXIDE 30 ML UDC PO SCH (21:19)
[2022-01-23] VITALS: BP 129/85
[2022-01-23 02:16] VITALS: BP 129/85
[2022-01-23 04:00] VITALS: BP 134/79
[2022-01-23] MEDS: SODIUM CHLORIDE 0.9% 1000ML 1,000 ML IV SCH (05:30)
[2022-01-23 08:00] VITALS: BP 143/63
[2022-01-23 08:14] VITALS: BP 143/63
[2022-01-23 09:03] LABS: BASOPHILS % 0.6 % (0.0-1.0); EOSINOPHILS # (AUTO) 0.4 (0.0-0.4); EOSINOPHILS % 6.1 % (0.0-6.0); HEMATOCRIT 25.5 % (38.2-49.6); HEMOGLOBIN 8.5 g/dL (14.0-18.0); LYMPHOCYTES # (AUTO) 1.8 (1.0-3.2); LYMPHOCYTES % 26.2 % (18.0-39.1); MEAN CORPUSCULAR HGB CONC 33.3 g/dL (31-35); MONOCYTES # (AUTO) 0.9 (0.2-0.8); MONOCYTES % 13.2 % (4.4-11.3); NEUTROPHILS # (AUTO) 3.7 (2.1-6.9); NEUTROPHILS % 53.5 % (38.7-80.0); PLATELET COUNT 497 x10e3/uL (140-360); RED BLOOD COUNT 3.15 x10e6/uL (4.3-5.7); RED CELL DISTRIBUTION WIDTH 20.5 % (11.7-14.4)
[2022-01-23 09:25] LABS: ALBUMIN 2.2 g/dL (3.5-5.0); ALBUMIN/GLOBULIN RATIO 0.6 (0.8-2.0); ANION GAP 10.4 mmol/L (8-16); CALCIUM 7.8 mg/dL (8.4-10.2); CREATININE, SERUM 0.74 mg/dL (0.72-1.25); POTASSIUM 3.4 mmol/L (3.5-5.1)
[2022-01-23 12:00] VITALS: BP 155/66
[2022-01-23] MEDS ORDERED: KETOROLAC TROME10 MG PO (13:23)
== END 2022-01-23 15:47 | disposition home or self-care (01) | DRG 390 ==
LOC: ER 20:23 → ERHOLD 23:59 → MED/SURG 01-20 00:58 → OBSVTOIN 01-21 12:06
PROVIDERS: ADMIT Internal Medicine; ATTEND Internal Medicine
DX: K56.699 Other intestinal obstruction unspecified as to partial versus complete obstruction (principal); I10 Essential (primary) hypertension; D50.9 Iron deficiency anemia, unspecified; F10.11 Alcohol abuse, in remission; G89.18 Other acute postprocedural pain; Z20.822 Contact with and (suspected) exposure to COVID-19
CPT/HCPCS: 36415; 74176; 80053; 81001; 82150; 82550; 82553; 83690; 84484; 85025; 94799; 99284; G0378; J1885; J2405; J7030; Q9967; U0002